=== PATIENT | female | born 1940 | race Caucasian/White ===

== ENCOUNTER 2017-01-21 12:24 | Observation (INO) | payer OTHER ==
[~2017-01-21] VITALS: Ht 160 cm; Wt 77.1 kg
== END 2017-01-22 12:40 | disposition home or self-care (01) ==
LOC: ER 12:24 → MED 16:33
PROVIDERS: ADMIT Internal Medicine
DX: R42 Dizziness and giddiness (principal); E87.6 Hypokalemia; I10 Essential (primary) hypertension; K21.9 Gastro-esophageal reflux disease without esophagitis; Z85.3 Personal history of malignant neoplasm of breast; Z88.1 Allergy status to other antibiotic agents; Z79.82 Long term (current) use of aspirin; Z79.899 Other long term (current) drug therapy; Z90.49 Acquired absence of other specified parts of digestive tract; Z90.710 Acquired absence of both cervix and uterus; Z98.51 Tubal ligation status
CPT/HCPCS: 36415; 96372; 96374; 96375; 96376; G0378; J1650; J2550